=== PATIENT | male | born 1940 | race Caucasian/White ===

== ENCOUNTER → 2020-07-13 | Outpatient (CLI) | payer BC ==
[~2020-07-13] MED LIST: ALLOPURINOL 30300 M1 PO; AMBIEN 5 MG TABL5 M1 PO; AMLODIPINE BESY10 MG PO; ASPIR 8181 MG PO; BENAZEPRIL HCL20 MG PO; COZAAR 50 MG TA50 M2 PO; EFFIENT10 MG PO; FENTANYL PA25 MCG/HR TP; FLOMAX PO; FLOMAX0.4 MG PO; FLONASE 0.05%50 MCG NASAL; MACROBID 100 M100 M1 PO; MEDROLDOSEPACK PO; PRAVACHOL40 MG PO; PYRIDIUM100 MG PO; SERTRALINE HCL50 MG PO; TESTOSTERONE IM; TOPROL XL25 MG PO
== END ==
LOC: M.PC 09:20
PROVIDERS: ATTEND Anesthesiology Pain Medicine
DX: M54.2 Cervicalgia (principal); M25.511 Pain in right shoulder; M25.512 Pain in left shoulder; M10.9 Gout, unspecified; G47.33 Obstructive sleep apnea (adult) (pediatric); G89.29 Other chronic pain; G25.81 Restless legs syndrome; E78.5 Hyperlipidemia, unspecified; I10 Essential (primary) hypertension; Z79.899 Other long term (current) drug therapy

== ENCOUNTER → 2021-02-28 | Outpatient (CLI) | payer BC | LOC: M.LAB 12:44 | PROVIDERS: ATTEND Internal Medicine Gastroenterology | DX: Z01.812 Encounter for preprocedural laboratory examination (principal); Z20.822 Contact with and (suspected) exposure to COVID-19 ==